=== PATIENT | female | born 1985 | race Caucasian/White ===

== ENCOUNTER 2019-04-17 10:06 | Day surgery (SDC) | payer OTHER ==
[~2019-04-17 10:06] MED LIST: CEFAZOLIN 2 GM/50 ML (PMX) 50 ML IVPB
[2019-04-17] MEDS: SOD CHLORIDE 0.9% 1,000 ML IV (11:05)
[2019-04-17 11:11] LABS: ADD MAN DIFF? NO
[2019-04-17 11:15] LABS: BASOPHILS % 0.7 % (0.0-2.0); EOSINOPHILS % 0.9 % (0.0-7.0); HEMATOCRIT 38.8 % (37.0-47.0); HEMOGLOBIN 12.5 g/dl (12.0-16.0); LYMPHOCYTES # 1.7 10^3/ul (0.8-2.9); LYMPHOCYTES % 37.5 % (15.0-51.0); MEAN CORPUSCULAR HEMOGLOBIN 28.7 pg (29.0-33.0); MEAN CORPUSCULAR HGB CONC 32.2 g/dl (32.0-37.0); MEAN CORPUSCULAR VOLUME 89.2 fl (82.0-101.0); MEAN PLATELET VOLUME 12.4 fl (7.4-10.4); MONOCYTE # 0.3 10^3/ul (0.3-0.9); MONOCYTES % 5.8 % (0.0-11.0); NEUTROPHIL # 2.5 10^3/ul (1.6-7.5); NEUTROPHILS % 54.7 % (39.0-77.0); PLATELET COUNT 177 10^3/UL (140-415); RED BLOOD COUNT 4.35 10^6/ul (4.20-5.40); RED CELL DISTRIBUTION WIDTH 13.8 % (11.5-14.5)
[2019-04-17 11:15] LABS: WHITE BLOOD COUNT 4.5 10^3/ul (4.8-10.8)
[2019-04-17 11:34] LABS: INR 0.94; PROTIME 12.7 Sec (11.9-14.9)
[2019-04-17 11:35] LABS: PARTIAL THROMBOPLASTIN TIME 29.7 Sec (23.0-35.0)
[2019-04-17 11:38] LABS: ALANINE AMINOTRANSFERASE 13 IU/L (13-69); ALBUMIN 4.3 g/dl (3.3-4.9); ALBUMIN/GLOBULIN RATIO 1.22; ALKALINE PHOSPHATASE 38 IU/L (42-121); ANION GAP 7 (5-13); ASPARTATE AMINO TRANSFERASE 20 IU/L (15-46); BILIRUBIN,INDIRECT 0.4 mg/dl (0-1.1); BILIRUBIN,TOTAL 0.4 mg/dl (0.2-1.3); BLOOD UREA NITROGEN 20 mg/dl (7-20); CALCIUM 9.3 mg/dl (8.4-10.2); CARBON DIOXIDE 26 mmol/L (21-31); CHLORIDE 105 mmol/L (97-110); CREATININE 0.57 mg/dl (0.44-1.00); Estimated GFR > 60 mL/min (>60); GLUCOSE 90 mg/dl (70-220); POTASSIUM 4.6 mmol/L (3.5-5.1); SODIUM 138 mmol/L (135-144); TOTAL PROTEIN 7.8 g/dl (6.1-8.1)
[2019-04-17] MEDS ORDERED: BUPIVACAINE 0.5%/EPI (SDV) 10 ML INJ (12:57)
[2019-04-17] MEDS ORDERED: LIDOCAINE 100 MG SYRINGE (13:41)
[2019-04-17] MEDS ORDERED: CEFAZOLIN 1 GM INJ (13:41)
[2019-04-17] MEDS ORDERED: PROPOFOL 20 ML (13:41)
[2019-04-17] MEDS ORDERED: FENTAnyl 50 MCG/ML VIAL ×2 (13:41→14:18)
[2019-04-17] MEDS ORDERED: SUGAMMADEX SODIUM 200 MG/2 ML VIAL IV (13:42)
[2019-04-17] MEDS ORDERED: DEXAMETHASONE 4 MG/ML 5 ML INJ (13:42)
[2019-04-17] MEDS ORDERED: MIDAZOLAM 1 MG/ML 2 ML INJ (13:42)
[2019-04-17] MEDS ORDERED: ONDANSETRON 4 MG INJ (13:42)
[2019-04-17] MEDS: LIDOCAINE 1% (MPF) 30 ML INJ (14:13)
[2019-04-17] MEDS: BUPIVACAINE 0.25%/EPI (SDV) 10 ML INJ (14:13)
[2019-04-17] MEDS: HYDROGEN PEROXIDE 118 ML (14:41)
[2019-04-17] MEDS ORDERED: HYDROmorphONE 1 MG/5 ML IV SYRINGE IV ×2 (15:00)
[2019-04-17] MEDS ORDERED: METOCLOPRAMIDE 10 MG INJ IV (15:00)
[2019-04-17] MEDS ORDERED: ONDANSETRON 4 MG INJ IV ×2 (15:00→15:30)
[2019-04-17] MEDS ORDERED: MEPERIDINE 25 MG INJ IV (15:00)
[2019-04-17] MEDS ORDERED: LABETALOL HCL 20MG INJ IV (15:00)
[2019-04-17] MEDS ORDERED: FENTAnyl 50 MCG/ML VIAL IV ×2 (15:00)
[2019-04-17] MEDS ORDERED: hydrALAzine 20 MG INJ IV (15:00)
[2019-04-17] MEDS ORDERED: LACTATED RINGER'S 1,000 ML IV (15:29)
[2019-04-17] MEDS ORDERED: morphine 2 MG INJ IV (15:30)
[2019-04-17] MEDS ORDERED: HYDROCODONE/APAP (5/325) TAB PO ×2 (15:30)
== END 2019-04-17 16:45 | disposition home or self-care (01) ==
LOC: SDS 10:06
DX: L72.0 Epidermal cyst (principal)
CPT/HCPCS: 14301; 80053; 85025; 85610; 85730; 88307